=== PATIENT | male | born 1995 | race African-American/Black ===

== ENCOUNTER 2020-11-23 15:09 | Emergency (ER) | payer OTHER ==
[~2020-11-23] VITALS: Ht 170.2 cm; Wt 72.7 kg
[~2020-11-23 15:09] MED LIST: IBUP-1060 PO; NAPR-514 PO
--- NOTE | 2020-11-23 16:07 | RAD ---
Exam: Left hand 3 views INDICATION: Trauma TECHNIQUE: Frontal, lateral and oblique views of the left hand Comparisons: None FINDINGS: Mildly displaced fracture at the base of the second metacarpal. Bone mineralization is normal. Joint spaces are well-maintained. Soft tissues are unremarkable unremarkable. IMPRESSION: Mildly displaced fracture involving the base of the second metacarpal. Electronically signed by: Gayle Flores MD (11/23/2020 4:05 PM) DILCIA
[2020-11-23] MEDS ORDERED: AZITHROMYCIN 250 MG TABLET. PO ONE (16:15)
[2020-11-23] MEDS ORDERED: cefTRIAXone IM 250 MG VIAL IM ONE (16:15)
[2020-11-23] MEDS ORDERED: HYDR-2761 PO (17:57)
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
[2020-11-23 18:10] VITALS: BP 127/71
== END 2020-11-23 18:10 | disposition home or self-care (01) ==
LOC: ER 15:09
DX: S62.311A Displaced fracture of base of second metacarpal bone, left hand, initial encounter for closed fracture (principal); F17.200 Nicotine dependence, unspecified, uncomplicated; W23.1XXA Caught, crushed, jammed, or pinched between stationary objects, initial encounter; Y93.89 Activity, other specified; Y92.89 Other specified places as the place of occurrence of the external cause; Y99.8 Other external cause status
CPT/HCPCS: 29125; 73130; 87491; 87591; 96372; 99284; J0696